=== PATIENT | female | born 1960 | race Caucasian/White ===

== ENCOUNTER 2020-12-19 06:45 | Emergency (ER) | payer OTHER, SELFPAY ==
--- NOTE | ~2020-12-19 | XR_ITS ---
EXAMINATION: XR chest 1V portable DATE: 12/19/2020 07:29 INDICATION: Fever TECHNIQUE: frontal view of the chest was obtained. COMPARISON: Chest radiograph dated 02/21/2018 FINDINGS: Mild opacities at the right lung base projecting over the diaphragm which could represent atelectasis and/or pneumonia. No pleural effusion or pneumothorax. The cardiomediastinal silhouette is normal. M ild thoracolumbar dextrocurvature with mild spondylosis. Old lateral left seventh rib fracture. IMPRESSION: 1. Mild right basilar opacities which could represent atelectasis and/or pneumonia. Reviewed, dictated and finalized at location A. IMPRESSION: 1. Mild right basilar opacities which could represent atelectasis and/or pneumo los.
[2020-12-19 06:53] VITALS: BP 106/74; PULSE 107; RESP 20; TEMP 38.1; O2SAT 93
--- NOTE | 2020-12-19 07:24 | ED.URI ---
HPI - URI/Sore Throat General Chief Complaint: Upper Respiratory Infection Stated Complaint: coughing, fatigued, no appetite since saturday Time Seen by Provider: 12/19/20 07:08 History of Present Illness HPI Narrative: Cough for the past few days. Associated with pleritic chest pain, fatigue, and poor appetie. No fever, SOB, vomiting, diarrhea. No sick contacts. She is a daily smoker. She has not had her COVID-19 vaccine. Related Data Allergies Allergy/AdvReac Type Severity Reaction Status Date / Time Penicillins Allergy Unknown Unknown Verified 02/21/18 10:31 Review of Systems Review of Systems: All systems reviewed & are unremarkable except as noted in HPI and below Constitutional: Constitutional: Reports fatigue and Denies fever(s) ENT: Denies sore throat Cardiovascular: Cardiovascular: Reports as per HPI Respiratory: Respiratory: Reports cough and Denies dyspnea Gastrointestinal: Gastrointestinal: Denies diarrhea, Denies nausea and Denies vomiting Genitourinary: Genitourinary: Reports no additional female genitourinary complaints Neurologic: Denies dizziness and Denies weakness [facility] Social History Social History (Updated 12/19/20 @ 20:37 by Abner Franco MD) Smoking status: Current every day smoker Exam Const: General: no acute distress and alert Orientation/consciousness: patient oriented x3 HENMT: Head: normal to inspection Neck: Neck: normal visual inspection Resp: Effort & Inspection: normal respiratory effort Auscultation: crackles bilateral at the base Cardio: Rate: tachycardic Rhythm: regular rhythm GI: GI Palp: Yes Soft to palpation and No Tenderness to palpation present (GI) Skin: General skin exam: normal color Neuro: General: patient oriented x3 and moves all extremities Speech: normal speech Gait exam (Neuro): Normal gait present Extrem: General: no edema Course Vital Signs Vital signs: Vital Signs Temperature 38.1 C H 12/19/20 06:53 Pulse Rate 107 H 12/19/20 06:53 Respiratory Rate 20 12/19/20 06:53 Blood Pressure 106/74 12/19/20 06:53 Pulse Oximetry 93 12/19/20 06:53 Temperature 38.1 C H 12/19/20 06:53 Pulse Rate 113 H 12/19/20 08:05 Respiratory Rate 16 12/19/20 08:05 Blood Pressure 116/70 12/19/20 08:05 Pulse Oximetry 94 12/19/20 08:05 MDM - URI/Sore Throat MDM Narrative Medical decision making narrative: Subtle infiltrate. Could be COVID or bacterial pneumonia. She had improvement with nebulizer treatment and has been maintaining her O2 saturation. She is a good candidate for outpatient treatment she agrees with the plan Medical Records Attestation: I reviewed the patient's medical records. Lab Data Attestation: I reviewed the patient's lab results. Result diagrams: 12/19/20 07:32 12/19/20 07:32 Labs: Lab Results 12/19/20 12/19/20 12/19/20 Range/Units 07:32 07:32 07:32 WBC 5.4 (4.5-10.0) K/mm3 RBC 4.32 (4.2-5.4) M/mm3 Hgb 13.9 (12.0-15.0) g/dL Hct 41.9 (37.0-47.0) % MCV 97.0 (80-100) fl MCH 32.2 (26-34) pg MCHC 33.2 (32-36) g/dl RDW 13.2 (11.5-14.5) % Plt Count 127 L (150-375) k/mm3 MPV 10.3 (7.4-10.4) fl Immature Gran % (Auto) 0.4 (0-0.5) % Neut % (Auto) 66.6 (45.5-73.1) % Lymph % (Auto) 24.4 (18.3-44.2) % [place] % (Auto) 7.6 (2.6-8.5) % Eos % (Auto) 0.6 (0-4.4) % Baso % (Auto) 0.4 (0.2-1.2) % Lymph # (Auto) 1.32 (0.9-3.2) K/mm3 [place] # (Auto) 0.4 (0.1-0.6) K/mm3 Eos # (Auto) 0.0 (0-0.3) K/mm3 Baso # (Auto) 0.0 (0.0-0.1) K/mm3 Abs Immat Gran (auto) 0.02 (0.00-0.031) K/mm3 Absolute Neuts (auto) 3.6 (1.3-6.7) K/mm3 Absolute Nucleated RBC 0.0 (0.0-0.012) K/mm3 Nucleated RBC % 0.0 (0.0-0.2) % % Immature Plt Fraction 4.0 (0.9-11.2) % Sodium 136 L (137-145) mmol/L Potassium 4.1 (3.4-5.0) mmol/L Chloride 104 (98-107) mmol/L Carbon Dioxide 26 (22-3
[2020-12-19] MEDS: SODIUM CHLORIDE 0.9% IV 500 ML 999 ML IV CONT (07:32)
[2020-12-19] MEDS: ALBUTEROL SULFATE NEB 2.5 MG/0.5 ML INH 5 MG INHALATION (07:36)
[2020-12-19 07:37] VITALS: PULSE 87; RESP 18
[2020-12-19] MEDS: IPRATROPIUM BR 0.02% INH SOLN 0.5 MG/2.5 ML VIAL INHALATION (07:37)
[2020-12-19 07:42] VITALS: PULSE 92; RESP 16
[2020-12-19 07:45] LABS: Basophils Percent Auto 0.4 % (0.2-1.2); Eosinophils Percent Auto 0.6 % (0-4.4); Hematocrit 41.9 % (37.0-47.0); Hemoglobin 13.9 g/dL (12.0-15.0); Immature Granulocyte Absolute 0.02 K/mm3 (0.00-0.031); Immature Granulocyte Percent A 0.4 % (0-0.5); Lymphocytes Absolute Auto 1.32 K/mm3 (0.9-3.2); Lymphocytes Percent Auto 24.4 % (18.3-44.2); Mean Corpuscular HGB Conc 33.2 g/dl (32-36); Mean Corpuscular Hemoglobin 32.2 pg (26-34); Mean Platelet Volume 10.3 fl (7.4-10.4); Monocytes Absolute Auto 0.4 K/mm3 (0.1-0.6); Monocytes Percent Auto 7.6 % (2.6-8.5); Neutrophils Absolute Auto 3.6 K/mm3 (1.3-6.7); Neutrophils Percent Auto 66.6 % (45.5-73.1); Platelet Count Result 127 k/mm3 (150-375); Red Blood Count 4.32 M/mm3 (4.2-5.4); Red Cell Distribution Width 13.2 % (11.5-14.5); White Blood Count 5.4 K/mm3 (4.5-10.0)
[2020-12-19 07:57] LABS: Anion Gap 6 mmol/L (8-16); Blood Urea Nitrogen 11 mg/dL (7-17); Calcium 9.2 mg/dL (8.4-10.2); Carbon Dioxide 26 mmol/L (22-30); Chloride 104 mmol/L (98-107); Estimated CRCL calculation 61 ml/min; Estimated Glomerular Filt Rate > 60; Glucose 115 mg/dL (65-110); Potassium 4.1 mmol/L (3.4-5.0); Sodium 136 mmol/L (137-145)
[2020-12-19 08:05] VITALS: BP 116/70; PULSE 113; RESP 16; O2SAT 94
[2020-12-19] MEDS: levoFLOXacin 500 MG TABLET PO (08:20)
[2020-12-19] MEDS: predniSONE 20 MG TABLET 40 MG PO (08:20)
[2020-12-19 20:35] LABS: SARS-CoV-2 RNA PCR Positive
== END 2020-12-19 08:20 | disposition home or self-care (01) ==
PROVIDERS: Emergency Provider Emergency Medicine
DX: U07.1 COVID-19 (principal); J12.82 Pneumonia due to coronavirus disease 2019; F17.200 Nicotine dependence, unspecified, uncomplicated
CPT/HCPCS: 36415; 71045; 80048; 85025; 85055; 94640; 96360; 99283; A9270; C9803; J7040; J7512; U0003; U0005

== ENCOUNTER 2020-12-23 21:33 | Inpatient (IN) | payer OTHER, SELFPAY ==
[2020-12-23] VITALS (12 sets, daily range): BP systolic 118–137; BP diastolic 67–75; PULSE 112–131; RESP 17–26; TEMP 39.1; O2SAT 91–94
--- NOTE | ~2020-12-23 | XR_ITS ---
EXAMINATION: XR chest 2V EXAM DATE: 12/23/2020 22:00 INDICATION: SOB, COVID +, cough, nausea since Saturday . TECHNIQUE: Frontal and lateral projections of the chest obtained and reviewed. Comparison is made to prior examination from 12/19/2020. FINDINGS: There is some new right-sided predominant ill-defined airspace disease probably acute infe ctious process. No pneumothorax or pleural effusion. Hyperinflation. There are no osseous abnormaliti es identified. IMPRESSION: 1. Small to moderate amount of bilateral ill-defined pneumonia. Reviewed, dictated and finalized at location G.
--- NOTE | ~2020-12-23 | CT_ITS ---
EXAMINATION: CTA chest PE protocol DATE: 12/24/2020 02:27 INDICATION: Chest pain, shortness of breath. Covid-positive. TECHNIQUE: Computed tomography angiography (CTA) of the chest was performed with 100 mL Omnipaque-350 intravenous contrast timed to evaluate the pulmonary arteries. Coronal maximum intensity projection 3D-reconstructions were created by the technologist. Automated exposure control and iterative reconst ruction technique were employed. Exam dose: 147.48 mGy-cm total exam DLP. COMPARISON: 12/23/2020 PA and lateral chest FINDINGS: There is diagnostic contrast enhancement of the pulmonary arteries and no evidence of pulmo nary embolism. Normal heart size. No thoracic aortic aneurysm or dissection. Normal heart size. No pericardial or pleural effusion. There are patchy scattered bilateral groundglass pulmonary infiltrates consistent with Covid pneumoni a. Incidental finding of cholelithiasis. The adrenal glands appear normal. Small sliding hiatal hernia. IMPRESSION: No evidence of pulmonary embolism Bilateral patchy groundglass infiltrates consistent with history of Covid pneumonia Reviewed, dictated and finalized at Location A. Reviewed, dictated and finalized at location A. IMPRESSION: No evidence of pulmonary embolism Bilateral patchy groundglass infiltrates consistent with history of Covid pneum onia
--- NOTE | 2020-12-23 21:43 | ECG_ITS ---
Measurements Intervals [place] Rate: 129 P: 34 AK: 96 QRS: 61 QRSD: 83 T: 59 QT: 263 QTc: 385 Interpretive Statements SINUS TACHYCARDIA WITH SHORT AK INTERVAL VENTRICULAR PREMATURE COMPLEX BASELINE ARTIFACT- AVL ABNORMAL ECG Electronically Signed On 12-24-2020 7:00:32 CDT by Dave Ritter D.O.
--- NOTE | 2020-12-23 21:55 | PC.NURSE ---
Patient taken to xray.
[2020-12-23 22:00] LABS: Basophils Percent Auto 0.2 % (0.2-1.2); Hemoglobin 14.4 g/dL (12.0-15.0); Immature Granulocyte Absolute 0.06 K/mm3 (0.00-0.031); Immature Granulocyte Percent A 1.3 % (0-0.5); Lymphocytes Absolute Auto 1.04 K/mm3 (0.9-3.2); Lymphocytes Percent Auto 21.7 % (18.3-44.2); Mean Corpuscular HGB Conc 34.3 g/dl (32-36); Mean Corpuscular Hemoglobin 31.9 pg (26-34); Mean Corpuscular Volume 93.1 fl (80-100); Mean Platelet Volume 9.8 fl (7.4-10.4); Monocytes Absolute Auto 0.4 K/mm3 (0.1-0.6); Monocytes Percent Auto 7.7 % (2.6-8.5); Neutrophils Absolute Auto 3.3 K/mm3 (1.3-6.7); Neutrophils Percent Auto 69.1 % (45.5-73.1); Platelet Count Result 173 k/mm3 (150-375); Red Blood Count 4.51 M/mm3 (4.2-5.4); Red Cell Distribution Width 12.9 % (11.5-14.5); White Blood Count 4.8 K/mm3 (4.5-10.0)
[2020-12-23 22:11] LABS: Alanine Aminotransferase 307 U/L (4-35); Albumin Level 4.1 g/dL (3.5-5.1); Alkaline Phosphatase 142 U/L (38-126); Anion Gap 9 mmol/L (8-16); Aspartate Amino Transferase 162 U/L (14-36); Bilirubin,Total 0.5 mg/dL (0.2-1.3); Blood Urea Nitrogen 17 mg/dL (7-17); Calcium 9.7 mg/dL (8.4-10.2); Carbon Dioxide 24 mmol/L (22-30); Chloride 99 mmol/L (98-107); Estimated CRCL calculation 54 ml/min; Estimated Glomerular Filt Rate > 60; Glucose 116 mg/dL (65-110); Sodium 132 mmol/L (137-145)
--- NOTE | 2020-12-23 23:46 | ED.SOB ---
HPI - SOB/Dyspnea General Chief Complaint: Shortness of Breath/Dyspnea Stated Complaint: COVID + Time Seen by Provider: 12/23/20 23:03 Source: patient and RN notes reviewed Mode of arrival: ambulatory Limitations: no limitations History of Present Illness HPI Narrative: This is a 60 year old female who presents for evaluation of weakness, cough and shortness of breath. Patient developed cough, fever, shortness of breath on Saturday. She was evaluated on Saturday in ED and she was diagnosed with pneumonia. She discharged with antibiotics and steroids. She has returned tonight for evaluation of weakness, lightheadedness, shortness of breath and continued fever. She reports nausea and vomiting but she denies diarrhea. She was found to have fever in ED. She has been using albuterol inhaler without relief. She states she was diagnosed with covid on Saturday. At bedside oxygen saturation at rest is 90-93% on room air. Related Data Home Medications Medication Instructions Recorded Confirmed No Home Medications 12/24/20 12/24/20 Allergies Allergy/AdvReac Type Severity Reaction Status Date / Time Penicillins Allergy Unknown Unknown Verified 12/23/20 21:41 Review of Systems Review of Systems: All systems reviewed & are unremarkable except as noted in HPI and below PMFSH Past Medical History Medical History (Updated 12/24/20 @ 07:13 by Myrna Shaffer MD) Patient denies medical problems Surgical History Surgical History (Updated 12/23/20 @ 23:53 by Myrna Shaffer MD) No pertinent past surgical history Social History Social History (Updated 12/19/20 @ 20:37 by Abner Franco MD) Smoking packs per day: 1 Smoking cigarettes per day: 20.0 Years smoked: 35 Smoking pack-years: 35.00 Smoking status: Current every day smoker Tobacco type: cigarettes Alcohol intake: former Substance use: never Spiritual care concerns: No Exam Const: General: alert and ill appearing Orientation/consciousness: patient oriented x3 Eyes: EOM: EOMs intact bilaterally Resp: Effort & Inspection: normal respiratory effort, not labored and not tachypneic Auscultation: crackles and diminished lung sounds Cardio: Rate: tachycardic Rhythm: regular rhythm Heart sounds: no murmurs GI: GI Palp: Yes Soft to palpation, No Tenderness to palpation present (GI) and No Guarding due to palpation present (GI) Auscultation: normal bowel sounds Skin: General skin exam: normal color Rashes: no rashes Neuro: General: patient oriented x3, moves all extremities and CN's II-XI intact bilaterally Psych: Mental Status: mental status grossly normal Affect: normal affect Course Reevaluation(s) Reevaluation #1: I discussed with patient the plan to admit to hospital for IV hydration. She has decreasing sodium, oxygen saturation and tachycardia. She is septic due to covid pneumonia Date: 12/24/20 Time: 01:00 Consultations Consultation #1: I discussed case with DR. wesley. She accepts patient to hospitalist service for covid. She agrees with dexamethasone and remdesivir. she also request for patient to get d dimer, LDH and ferritin before admission. Date: 12/24/20 Time: 00:33 Vital Signs Vital signs: Vital Signs Temperature 102.3 F H 12/23/20 21:37 Pulse Rate 131 H 12/23/20 21:37 Respiratory Rate 22 H 12/23/20 21:37 Blood Pressure 137/67 12/23/20 21:37 Pulse Oximetry 92 12/23/20 21:37 Temperature 101.4 F H 12/24/20 04:45 Pulse Rate 90 12/24/20 04:45 Respiratory Rate 20 12/24/20 04:45 Blood Pressure 103/63 12/24/20 04:45 Pulse Oximetry 90 12/24/20 04:45 MDM - SOB/Dyspnea Medical Records Attestation: I reviewed the patient's medical records. Lab Data Attestation: I reviewed the patient's lab results. Result diagrams: 12/23/20 21:53 12/23/20 21:53 Labs: Lab Results 12/23/20 12/23/20 12/23/20 Range/Units 21:53 21:53 21:53 WBC 4.8 (4.5-
[2020-12-23] MEDS: ONDANSETRON INJ 4 MG/2 ML VIAL IV PUSH (23:59)
[2020-12-24] VITALS (40 sets, daily range): BP systolic 91–127; BP diastolic 49–76; PULSE 67–126; RESP 15–27; TEMP 36.2–38.6; O2SAT 89–98; BMI 18.5
[2020-12-24] MEDS: SODIUM CHLORIDE 0.9% IV 1,000 ML 999 ML IV CONT
[2020-12-24 00:02] LABS: Alveolar/Arterial O2 Gradient 58.2 mmHg; Base Excess ABG 3.2 mEq/l (+/-2.0); Carboxyhemoglobin 0.7 % THb (0-2.0); Fractional Inspired Oxygen 21 %; HCO3 ABG 25.5 mEq/l (22.0-26.0); Methemoglobin ABG 0.5 %THb (0-1.5); Oxygen Content ABG 19.4 %vol (16.0-22.0); Oxygen Saturation ABG 90.6 % (95.0-100.0); PCO2 ABG 32.6 mmHg (35.0-45.0); PO2 ABG 52.5 mmHg (80.0-100.0); Reduced Hemoglobin 8.8 %THb (0-5.0); Total Hemoglobin 15.4 g/dL (12.0-18.0)
[2020-12-24 00:04] LABS: pH ABG 7.512 (7.350-7.450)
[2020-12-24 00:05] LABS: Device ROOM AIR; Modified Allen's Test Pass; Site Drawn LEFT RADIAL
[2020-12-24] MEDS: ALBUTEROL SULFATE (*SP) AEROSOL 1 PUFF 4 PUFF INHALATION ×4 (00:09→22:22)
[2020-12-24 01:02] LABS: Add Urine Microscopic? YES; Appearance Urine Clear (Clear); Bacteria Urine Trace /hpf; Bilirubin Urine Negative (Negative); Blood Urine Negative (Negative); Color Urine Yellow (Yellow); Glucose Urine UA Negative (Negative); Ketones Urine Negative (Negative); Leukocyte Esterase Ur Negative LEU/UL (Negative); Mucus Urine Rare /lpf; Nitrate Urine Negative (Negative); Protein Urine 2+ mg/dL (Negative); RBC Urine 0-2 /hpf (0-2); Specific Grav Ur 1.018 (1.001-1.035); Squamous Epithelial Cell Urine Rare /hpf (Few); Urobilinogen Urine Negative mg/dL (<2.0); WBC Urine 0-3 /hpf
[2020-12-24 01:22] LABS: INR 0.8; Prothrombin Time 11.5 Seconds (11.1-14.7)
[2020-12-24 01:27] LABS: D Dimer 1.49 ug/mL (<0.48)
[2020-12-24 01:34] LABS: Lactate Dehydrogenase 1239 U/L (313-618)
[2020-12-24] MEDS: REMDESIVIR 200 MG/NS 250 ML 200 MG/250 ML BAG 250 MG IVPB (02:46)
[2020-12-24] MEDS: SODIUM CHLORIDE 0.9% IV 1,000 ML 125 ML IV CONT ×3 (03:57→17:18)
[2020-12-24] MEDS: ALBUTEROL SULFATE (*SP) INHALER 1 PUFF (03:59)
--- NOTE | 2020-12-24 04:56 | ADMGEN ---
This patient, Shannan Diop, was admitted to [facility] Room 330-01. Patient/family oriented to hospital policies and general routines including ID bracelet, bed and alarms, visiting hours, pain management, procedures, bathroom and other care routines, personal items, smoking policy, room service/diet, and visiting hours. Information on how to activate the Rapid Response Team has been discussed. Patient/Family are encouraged to report perceived risks to care and to ask questions if they do not understand what they are told or what they should do.
--- NOTE | 2020-12-24 06:13 | PM.IMHP ---
H&P: HPI History of Present Illness Date/Time: 12/24/20 06:13 Chief Complaint: shortness of breath, COVID positive Narrative: 60-year-old female with past medical history of chronic tobacco abuse and recent COVID diagnosis who presented to the ER due to worsening shortness of breath.The patient reports that she became ill 8 days ago. The patient was initially evaluated in the ER on 12/19/2020 complaining of pleuritic chest pain, Nonproductive cough, lightheadedness and poor appetite. She was sent home with an albuterol inhaler, prednisone and empiric antibiotic therapy with Levaquin. she took a couple of doses of prednisone but quit taking M cuss she thought that caused a headache. She did not complete her antibiotic therapy and quit using the and haler as she felt that did not improve her symptoms. She has continued to have fevers as high as 103? over the last several days she has developed shortness of breath. She has also developed nausea But denies vomiting or diarrhea. The patient's oxygen saturations were ranging between 90 and 93% in the ER. Her ABG demonstrated hypoxemia. her D-dimer was elevated in the ER and she had a CTA of the chest that ruled out pulmonary embolism and demonstrated pattern consistent with COVID pneumonia. She denies a known history of COPD but has not seen a doctor since her youngest child was born 22 years ago. She does have frequent episodes of bronchitis depending on the time of year. She has smoked 1 pack of cigarettes per day since she was a teenager. She reports that she quit smoking 3 days ago. she usually drinks a 6 pack of beer a week on the weekends. She quit drinking alcohol 2 weeks ago. She has a thin body habitus but reports that her weight has been stable with no recent changes. Review of Systems Review of Systems: Narrative: 12 systems were reviewed with pertinent positives and negatives per HPI. Except as documented in the HPI, all other systems were reviewed and are negative. [facility] Past Medical History Medical History (Updated 12/24/20 @ 07:44 by Noemí Parham DO) Continuous tobacco abuse Surgical History Surgical History (Updated 12/24/20 @ 07:44 by Noemí Parham DO) History of 2 sections History of appendectomy History of tonsillectomy History of total hysterectomy with bilateral salpingo-oophorectomy (BSO) Family History Family History (Updated 12/24/20 @ 07:45 by Noemí Parham DO) Mother , age greater than 80 CHF (congestive heart failure) Father , at age greater than 80 CHF (congestive heart failure) Social History Social History (Updated 12/24/20 @ 07:47 by Noemí Parham DO) Social History: she lives at home with her common-law of over 20 years. She has 4 children with her and the child being 22 years of age. She reports that her children are healthy. She works for [employer]. She has smoked tobacco since her early teens. She reports that she quit smoking 3 days ago. She used to drink a 6 pack of beer each weekend but quit drinking 2 weeks ago. Primary care physician: None code status: Full code Smoking packs per day: 1 Smoking cigarettes per day: 20.0 Years smoked: 35 Smoking pack-years: 35.00 Smoking status: Current every day smoker Tobacco type: cigarettes Alcohol intake: former Substance use: never Spiritual care concerns: No Meds Home Medications and Allergies Home Medications Medication Instructions Recorded Confirmed Type No Home Medications 12/24/20 12/24/20 History Allergies Allergy/AdvReac Type Severity Reaction Status Date / Time Penicillins Allergy Unknown Unknown Verified 12/23/20 21:41 Vital Signs Vital Signs - 24 hr 12/23/20 21:37 12/23/20 22:53 12/23/20 23:00 Temperature 102.3 F H Pulse Rate 131 H 114 H 116 H Respiratory Rate 22 H 21 H 23 H Blood Pressure 137/67 125/75 Pulse Ox
[2020-12-24 08:00] LABS: INR 0.9
[2020-12-24 08:28] LABS: Alanine Aminotransferase 227 U/L (4-35); Estimated CRCL calculation 62 ml/min; Estimated Glomerular Filt Rate > 60
[2020-12-24 08:30] LABS: CRP 3.5 mg/dL (<1.0)
[2020-12-24] MEDS: ENOXAPARIN 40 MG/0.4 ML SYRINGE SUB-Q (08:36)
[2020-12-24] MEDS: DEXAMETHASONE 2 MG TABLET 6 MG PO (08:37)
[2020-12-24 09:25] LABS: Sodium 133 mmol/L (137-145)
--- NOTE | 2020-12-24 15:31 | PM.IMPN ---
Progress Note: A&P Assessment and Plan (1) Acute respiratory failure with hypoxemia: Code(s): J96.01 - Acute respiratory failure with hypoxia Status: Acute Assessment and Plan: Secondary to COVID-19 pneumonia. Treatment for COVID-19 as detailed below Chest CTA negative for pulmonary embolism with bilateral patchy ground-glass infiltrates consistent with COVID pneumonia Maintaining adequate oxygenation on room air. Supplemental oxygen as needed with goal saturation 90% or above. (2) Pneumonia due to COVID-19 virus: Code(s): U07.1 - COVID-19; J12.82 - Pneumonia due to coronavirus disease 2019 Status: Acute Assessment and Plan: Symptom onset approximately 8 days prior to presentation with positive test on 12/19/20. Continue dexamethasone and Remdesivir, started on 12/24. Monitor ALT with Remdesivir Supportive care to include bronchodilators, expectorants, antipyretics, incentive spirometry Trend acute phase reactants (3) Severe sepsis: Code(s): A41.9 - Sepsis, unspecified organism; R65.20 - Severe sepsis without septic shock Status: Acute Assessment and Plan: She met sepsis criteria on presentation with fever, tachycardia, tachypnea, and hypoxemia. Source of infection felt to be viral respiratory illness fever and tachypnea improved continue with treatment for COVID-19 described above (4) Acute dehydration: Code(s): E86.0 - Dehydration Status: Acute Assessment and Plan: Clinically volume depleted upon presentation secondary to poor PO intake and fever Will continue with gentle IV fluids overnight given still decreased PO intake; 50 ml/hr Reassess volume status in the AM (5) Tobacco abuse: Code(s): Z72.0 - Tobacco use Status: Acute Assessment and Plan: Reports she quit smoking within 72 hours prior to presentation. smoking cessation has been discussed. She states she does not intend to start smoking again. Subjective Date/time seen: 12/24/20 15:31 Interval history: Date of service: 12/24/2020 Shannan Diop is a 60 year old female with a history of tobacco abuse who is seen in follow-up for COVID-19 pneumonia. She is feeling a little bit better today. She endorses dry cough. Shortness of breath is improved and she is able to ambulate to the restroom without significant [place]. denies wheezing. No chest pain or palpitations. No fever or chills. She is not eating or drinking much. She denies anosmia or dysgeusia. She has regular bowel movements and denies diarrhea. No nausea, vomiting, or abdominal pain. Slight dizziness this morning when getting up but this has improved throughout the day. denies lower extremity edema. She has no additional concerns this time Review of Systems Review of Systems: All systems reviewed & are unremarkable except as noted in HPI and below Exam Narrative: Exam Narrative: Ms. Diop is a thin, frail 60-year-old female who is lying supine in bed. she appears comfortable and is in NARD. Neuro: awake, alert and oriented x4, speech clear, no focal neuro deficits noted HEENMT: normocephalic, atraumatic, EOMI, sclerae anicteric, moist oral mucosa Neck: supple, no lymphadenopathy Respiratory: diminished breath sounds bilaterally without crackles, rhonchi, or wheezes, dry barking cough, nonlabored breathing Cardio: regular rate, regular rhythm with S1-S2 Abdomen: nondistended, normoactive bowel sounds, soft, nontender to palpation Extremities: no edema, erythema, or tenderness to palpation Skin: no rashes or lesions, warm and dry Psych: appropriate mood and affect, judgment and insight intact Objective Data Vital Signs Vital Signs: Vital Signs - 24 hr 12/23/20 21:37 12/23/20 22:53 12/23/20 23:00 Temperature 102.3 F H Pulse Rate 131 H 114 H 116 H Respiratory Rate 22 H 21 H 23 H Blood Pressure 137/67 125/75 Pulse Oximetry 92 93 93
[2020-12-24] MEDS: guaiFENesin 12 HR 600 MG TABCR PO (22:00)
[2020-12-24] MEDS: REMDESIVIR 100 MG/NS 250 ML 100 MG/250 ML BAG 250 MG IVPB (22:00)
[2020-12-25] VITALS (8 sets, daily range): BP systolic 91–108; BP diastolic 56–65; PULSE 67–91; RESP 18–20; TEMP 36.4–37.1; O2SAT 90–93
[2020-12-25 07:04] LABS: Basophils Percent Auto 0.2 % (0.2-1.2); Eosinophils Percent Auto 0.2 % (0-4.4); Hemoglobin 13.2 g/dL (12.0-15.0); Immature Granulocyte Absolute 0.05 K/mm3 (0.00-0.031); Lymphocytes Absolute Auto 1.25 K/mm3 (0.9-3.2); Lymphocytes Percent Auto 24.2 % (18.3-44.2); Mean Corpuscular HGB Conc 34.7 g/dl (32-36); Mean Corpuscular Hemoglobin 32.4 pg (26-34); Mean Corpuscular Volume 93.1 fl (80-100); Mean Platelet Volume 9.7 fl (7.4-10.4); Monocytes Absolute Auto 0.2 K/mm3 (0.1-0.6); Monocytes Percent Auto 3.1 % (2.6-8.5); Neutrophils Absolute Auto 3.7 K/mm3 (1.3-6.7); Neutrophils Percent Auto 71.3 % (45.5-73.1); Platelet Count Result 170 k/mm3 (150-375); Red Blood Count 4.08 M/mm3 (4.2-5.4); Red Cell Distribution Width 13.2 % (11.5-14.5); White Blood Count 5.2 K/mm3 (4.5-10.0)
[2020-12-25 07:16] LABS: Alanine Aminotransferase 224 U/L (4-35); Alkaline Phosphatase 95 U/L (38-126); Anion Gap 6 mmol/L (8-16); Aspartate Amino Transferase 178 U/L (14-36); Bilirubin,Total 0.5 mg/dL (0.2-1.3); Blood Urea Nitrogen 15 mg/dL (7-17); CRP 5.2 mg/dL (<1.0); Calcium 8.2 mg/dL (8.4-10.2); Carbon Dioxide 23 mmol/L (22-30); Chloride 107 mmol/L (98-107); Estimated CRCL calculation 62 ml/min; Estimated Glomerular Filt Rate > 60; Glucose 90 mg/dL (65-110); Lactate Dehydrogenase 1598 U/L (313-618); Potassium 3.8 mmol/L (3.4-5.0); Sodium 136 mmol/L (137-145)
[2020-12-25 07:17] LABS: Prothrombin Time 12.9 Seconds (11.1-14.7)
[2020-12-25] MEDS: ALBUTEROL SULFATE (*SP) AEROSOL 1 PUFF 4 PUFF INHALATION ×3 (08:43→21:26)
[2020-12-25] MEDS: ENOXAPARIN 40 MG/0.4 ML SYRINGE SUB-Q (09:45)
[2020-12-25] MEDS: guaiFENesin 12 HR 600 MG TABCR PO ×2 (09:45→21:58)
[2020-12-25] MEDS: DEXAMETHASONE 2 MG TABLET 6 MG PO (09:46)
--- NOTE | 2020-12-25 13:08 | PM.IMPN ---
Progress Note: A&P Assessment and Plan (1) Acute respiratory failure with hypoxemia: Code(s): J96.01 - Acute respiratory failure with hypoxia Status: Acute Assessment and Plan: Secondary to COVID-19 pneumonia. Treatment for COVID-19 as detailed below Chest CTA negative for pulmonary embolism with bilateral patchy ground-glass infiltrates consistent with COVID pneumonia Maintaining adequate O2 sats on 2 L. Supplemental oxygen as needed with goal saturation 90% or above. (2) Pneumonia due to COVID-19 virus: Code(s): U07.1 - COVID-19; J12.82 - Pneumonia due to coronavirus disease 2019 Status: Acute Assessment and Plan: Symptom onset approximately 8 days prior to presentation with positive test on 12/19/20. Continue dexamethasone started on 12/24. Continue Remdesivir. ALT is elevated, but <10x upper limit of normal, therefore Remdesivir can be continued with close monitoring of ALT Supportive care to include bronchodilators, expectorants, antipyretics, incentive spirometry Trend acute phase reactants (3) Severe sepsis: Code(s): A41.9 - Sepsis, unspecified organism; R65.20 - Severe sepsis without septic shock Status: Acute Assessment and Plan: She met sepsis criteria on presentation with fever, tachycardia, tachypnea, and hypoxemia. Source of infection felt to be viral respiratory illness fever and tachypnea resolved continue with treatment for COVID-19 described above (4) Acute dehydration: Code(s): E86.0 - Dehydration Status: Acute Assessment and Plan: Clinically volume depleted upon presentation secondary to poor PO intake and fever IV fluids not decreased as ordered and now with crackles. IV fluids discontinued and will give 20 mg PO Lasix. Reassess volume status in the AM (5) Tobacco abuse: Code(s): Z72.0 - Tobacco use Status: Acute Assessment and Plan: Reports she quit smoking within 72 hours prior to presentation. smoking cessation has been discussed. She states she does not intend to start smoking again. Subjective Date/time seen: 12/25/20 13:08 Interval history: Date of service: 12/25/2020 Shannan Diop is a 60 year old female with a history of tobacco abuse who is seen in follow-up for COVID-19 pneumonia. she is coughing more today And states that she has been coughing for most of the day. Cough is nonproductive. She has some bilateral rib pain when she coughs. She denies pleuritic chest pain. She is able to get up and walk to the bathroom, though this does make her short of breath. No nausea, vomiting, fever, chills, dizziness, lightheadedness, diarrhea, or urinary symptoms. She is eating and drinking well. She has no additional concerns today. Review of Systems Review of Systems: All systems reviewed & are unremarkable except as noted in HPI and below Exam Narrative: Exam Narrative: Ms. Diop is a thin, frail 60-year-old female who is lying supine in bed. she appears comfortable and is in NARD. Neuro: awake, alert and oriented x4, speech clear, no focal neuro deficits noted HEENMT: normocephalic, atraumatic, EOMI, sclerae anicteric, moist oral mucosa Neck: supple, no lymphadenopathy Respiratory: diminished breath sounds bilaterally with crackles in right lung base. Persistent cough on exam. Able to speak in full sentences, but does pause to cough. Cardio: regular rate, regular rhythm with S1-S2 Abdomen: nondistended, normoactive bowel sounds, soft, nontender to palpation Extremities: no edema, erythema, or tenderness to palpation Skin: no rashes or lesions, warm and dry Psych: appropriate mood and affect, judgment and insight intact Objective Data Vital Signs Vital Signs: Vital Signs - 24 hr 12/24/20 16:00 12/24/20 16:48 12/24/20 20:00 Temperature 97.2 F L 98.4 F Pulse Rate 85 78 Respiratory Rate 16 18 Blood Pressure 110/63 101/53 L
[2020-12-25 13:49] LABS: Prothrombin Time 13.1 Seconds (11.1-14.7)
[2020-12-25 13:50] LABS: Alanine Aminotransferase 202 U/L (4-35); Estimated CRCL calculation 62 ml/min; Estimated Glomerular Filt Rate > 60
[2020-12-25] MEDS: FUROSEMIDE 20 MG TABLET PO (14:47)
--- NOTE | 2020-12-25 17:48 | PCRCNOTE ---
Window of time for administration has passed. See next scheduled administration.
[2020-12-25] MEDS: REMDESIVIR 100 MG/NS 250 ML 100 MG/250 ML BAG 250 MG IVPB (21:58)
[2020-12-26] VITALS (10 sets, daily range): BP systolic 96–134; BP diastolic 62–83; PULSE 60–81; RESP 16–18; TEMP 36.4–37; O2SAT 92–97
[2020-12-26 06:51] LABS: Hematocrit 39.6 % (37.0-47.0); Hemoglobin 13.9 g/dL (12.0-15.0); Mean Corpuscular HGB Conc 35.1 g/dl (32-36); Mean Corpuscular Hemoglobin 33.7 pg (26-34); Mean Corpuscular Volume 96.1 fl (80-100); Platelet Count Result 192 k/mm3 (150-375); Red Blood Count 4.12 M/mm3 (4.2-5.4); Red Cell Distribution Width 13.3 % (11.5-14.5); White Blood Count 4.4 K/mm3 (4.5-10.0)
[2020-12-26 07:13] LABS: Alanine Aminotransferase 212 U/L (4-35); Albumin Level 3.2 g/dL (3.5-5.1); Alkaline Phosphatase 92 U/L (38-126); Anion Gap 4 mmol/L (8-16); Aspartate Amino Transferase 152 U/L (14-36); Bilirubin,Total 0.6 mg/dL (0.2-1.3); Blood Urea Nitrogen 17 mg/dL (7-17); CRP 4.5 mg/dL (<1.0); Calcium 8.5 mg/dL (8.4-10.2); Carbon Dioxide 25 mmol/L (22-30); Chloride 107 mmol/L (98-107); Estimated CRCL calculation 73 ml/min; Estimated Glomerular Filt Rate > 60; Glucose 112 mg/dL (65-110); Potassium 4.2 mmol/L (3.4-5.0); Sodium 136 mmol/L (137-145)
[2020-12-26 08:49] LABS: Prothrombin Time 12.7 Seconds (11.1-14.7)
[2020-12-26] MEDS: ALBUTEROL SULFATE (*SP) AEROSOL 1 PUFF 4 PUFF INHALATION ×4 (08:51→20:26)
[2020-12-26] MEDS: ENOXAPARIN 40 MG/0.4 ML SYRINGE SUB-Q (09:40)
[2020-12-26] MEDS: DEXAMETHASONE 2 MG TABLET 6 MG PO (09:41)
[2020-12-26] MEDS: guaiFENesin 12 HR 600 MG TABCR PO ×2 (09:41→20:33)
--- NOTE | 2020-12-26 10:41 | PM.IMPN ---
Progress Note: A&P Assessment and Plan (1) Acute respiratory failure with hypoxemia: Code(s): J96.01 - Acute respiratory failure with hypoxia Status: Acute Assessment and Plan: Secondary to COVID-19 pneumonia. Treatment for COVID-19 as detailed below Chest CTA negative for pulmonary embolism with bilateral patchy ground-glass infiltrates consistent with COVID pneumonia Maintaining adequate O2 sats on 2 L. Supplemental oxygen as needed with goal saturation 90% or above. (2) Pneumonia due to COVID-19 virus: Code(s): U07.1 - COVID-19; J12.82 - Pneumonia due to coronavirus disease 2019 Status: Acute Assessment and Plan: Symptom onset approximately 8 days prior to presentation with positive test on 12/19/20. Continue dexamethasone started on 12/24. Continue Remdesivir. ALT is elevated (212), but <10x upper limit of normal, therefore Remdesivir can be continued with close monitoring of ALT Supportive care to include bronchodilators, expectorants, antipyretics, incentive spirometry, Cornet Trend acute phase reactants (3) Severe sepsis: Code(s): A41.9 - Sepsis, unspecified organism; R65.20 - Severe sepsis without septic shock Status: Acute Assessment and Plan: She met sepsis criteria on presentation with fever, tachycardia, tachypnea, and hypoxemia. Source of infection felt to be viral respiratory illness fever, tachycardia, and tachypnea resolved continue with treatment for COVID-19 described above (4) Acute dehydration: Code(s): E86.0 - Dehydration Status: Acute Assessment and Plan: Clinically volume depleted upon presentation secondary to poor PO intake and fever She was rehydrated with IV fluids and then developed evidence of hypervolemia with crackles on lung exam. Received 20 mg PO lasix 12/25. She is euvolemic currently. Tolerating PO intake Continue to monitor volume status (5) Tobacco abuse: Code(s): Z72.0 - Tobacco use Status: Acute Assessment and Plan: Reports she quit smoking within 72 hours prior to presentation. Smoking cessation has been discussed. She states she does not intend to start smoking again. (6) Hypotension: Code(s): I95.9 - Hypotension, unspecified Status: Acute Assessment and Plan: Last BP 96/63. BP consistently running in low-normal range. She is asymptomatic and sounds as though her BP typically runs low Repeat BP with manual Consider IV fluid bolus if remaining low but will hold off for now as she became volume overloaded yesterday. Subjective Date/time seen: 12/26/20 10:41 Interval history: Date of service: 12/26/2020 Shannan Diop is a 60 year old female with a history of tobacco abuse who is seen in follow-up for COVID-19 pneumonia. she is feeling better today. She is coughing less frequently. she feels that she has phlegm in her chest and is having difficulty getting it up. She is able to ambulate independently and denies [place]. denies chest pain, palpitations, wheezing, orthopnea. Appetite is good. No nausea or vomiting. No diarrhea. Denies dizziness or lightheadedness. She has some questions about finding a PCP you follow-up with an about plans to return to work which we discussed will depend on her overall improvement. Review of Systems Review of Systems: All systems reviewed & are unremarkable except as noted in HPI and below Exam Narrative: Exam Narrative: Ms. Diop is a thin, frail 60-year-old female who is lying supine in bed. she appears comfortable and is in NARD. Neuro: awake, alert and oriented x4, speech clear, no focal neuro deficits noted HEENMT: normocephalic, atraumatic, EOMI, sclerae anicteric, moist oral mucosa, poor dentition Neck: supple, no lymphadenopathy Respiratory: diminished breath sounds bilaterally without crackles, wheezes, or rhonchi. nonlabored breathing. Cardio: regular rate,
--- NOTE | 2020-12-26 10:47 | PCDIET ---
Dietitian Screen for BMI: 18.5. Spoke with patient today due to COVID-19. Patient states weight is around 100-110# ibs. She is eating well, 50-100% of a regular diet. She refused diet supplements. Agree with diet orders. No further nutritional interventions.
[2020-12-26] MEDS: REMDESIVIR 100 MG/NS 250 ML 100 MG/250 ML BAG 250 MG IVPB (23:45)
[2020-12-27] VITALS (8 sets, daily range): BP systolic 100–120; BP diastolic 50–80; PULSE 66–83; RESP 18–22; TEMP 36.6–37; O2SAT 90–98
[2020-12-27 06:35] LABS: Hematocrit 37.6 % (37.0-47.0); Hemoglobin 13.5 g/dL (12.0-15.0); Mean Corpuscular HGB Conc 35.9 g/dl (32-36); Mean Corpuscular Hemoglobin 34.1 pg (26-34); Mean Corpuscular Volume 94.9 fl (80-100); Platelet Count Result 249 k/mm3 (150-375); Red Blood Count 3.96 M/mm3 (4.2-5.4); Red Cell Distribution Width 13.3 % (11.5-14.5); White Blood Count 5.9 K/mm3 (4.5-10.0)
[2020-12-27 06:42] LABS: INR 0.9; Prothrombin Time 12.5 Seconds (11.1-14.7)
[2020-12-27 07:36] LABS: Alanine Aminotransferase 196 U/L (4-35); Albumin Level 3.2 g/dL (3.5-5.1); Alkaline Phosphatase 104 U/L (38-126); Aspartate Amino Transferase 123 U/L (14-36); Bilirubin,Total 0.6 mg/dL (0.2-1.3); Blood Urea Nitrogen 15 mg/dL (7-17); CRP 2.6 mg/dL (<1.0); Calcium 8.7 mg/dL (8.4-10.2); Carbon Dioxide 25 mmol/L (22-30); Estimated CRCL calculation 73 ml/min; Estimated Glomerular Filt Rate > 60; Glucose 108 mg/dL (65-110); Lactate Dehydrogenase 1285 U/L (313-618)
[2020-12-27 08:23] LABS: Anion Gap 7 mmol/L (8-16); Chloride 105 mmol/L (98-107); Potassium 3.9 mmol/L (3.4-5.0); Sodium 137 mmol/L (137-145)
[2020-12-27] MEDS: ALBUTEROL SULFATE (*SP) AEROSOL 1 PUFF 4 PUFF INHALATION (08:25)
[2020-12-27] MEDS: ENOXAPARIN 40 MG/0.4 ML SYRINGE SUB-Q (08:55)
[2020-12-27] MEDS: guaiFENesin 12 HR 600 MG TABCR PO ×2 (08:56→21:29)
[2020-12-27] MEDS: DEXAMETHASONE 2 MG TABLET 6 MG PO (08:56)
[2020-12-27 16:03] LABS: Vancomycin Trough < 5.0 ug/mL (10.0-20.0)
--- NOTE | 2020-12-27 18:11 | PM.IMPN ---
Progress Note: A&P Assessment and Plan (1) Acute respiratory failure with hypoxemia: Code(s): J96.01 - Acute respiratory failure with hypoxia Status: Acute Assessment and Plan: Secondary to COVID-19 pneumonia. Treatment for COVID-19 as detailed below Chest CTA negative for pulmonary embolism with bilateral patchy ground-glass infiltrates consistent with COVID pneumonia Maintaining adequate O2 sats on 1 L, nursing will attempt to wean to room air. Supplemental oxygen as needed with goal saturation 90% or above. (2) Pneumonia due to COVID-19 virus: Code(s): U07.1 - COVID-19; J12.82 - Pneumonia due to coronavirus disease 2019 Status: Acute Assessment and Plan: Symptom onset approximately 8 days prior to arrival with positive test on 12/19/20. Continue dexamethasone started on 12/24 (day 4). Continue Remdesivir (day 4). ALT is elevated but improving and <10x upper limit of normal, therefore Remdesivir can be continued with close monitoring of ALT. Supportive care to include bronchodilators, expectorants, antipyretics, incentive spirometry, Cornet Trend acute phase reactants (3) Severe sepsis: Code(s): A41.9 - Sepsis, unspecified organism; R65.20 - Severe sepsis without septic shock Status: Acute Assessment and Plan: She met sepsis criteria on presentation with fever, tachycardia, tachypnea, and hypoxemia. Source of infection felt to be viral respiratory illness with COVID-19 fever, tachycardia, and tachypnea resolved continue with treatment for COVID-19 described above (4) Acute dehydration: Code(s): E86.0 - Dehydration Status: Resolved Assessment and Plan: Clinically volume depleted upon presentation secondary to poor PO intake and fever She was rehydrated with IV fluids and then developed evidence of hypervolemia with crackles on lung exam. Received 20 mg PO lasix 12/25. She is euvolemic currently. Tolerating PO intake Continue to monitor volume status (5) Tobacco abuse: Code(s): Z72.0 - Tobacco use Status: Acute Assessment and Plan: Reports she quit smoking within 72 hours prior to presentation. Smoking cessation has been discussed. She states she does not intend to start smoking again. (6) Hypotension: Code(s): I95.9 - Hypotension, unspecified Status: Acute Assessment and Plan: Last BP 100/58. BP consistently running in low-normal range. She is asymptomatic and sounds as though her BP typically runs low. Monitor BP and adjust treatment as needed. Subjective Date/time seen: 12/27/20 1730 Interval history: Shannan Diop is a 60 year old female with a history of tobacco abuse who is seen in follow-up for COVID-19 pneumonia. She is feeling better today. She is coughing less frequently. Not able to cough up much phlegm. Denies feeling short of breath at rest or with walking to restroom. Has been eating and drinking well without nausea or vomiting today. Denies chest pain, dizziness or palpitations. Detailed discussion held regarding her isolation, return to work, and PCP follow up. Review of Systems Review of Systems: All systems reviewed & are unremarkable except as noted in HPI and below Exam Narrative: Exam Narrative: Ms. Diop is a thin, frail 60-year-old female who is lying supine in bed. She appears comfortable and is in NARD. Neuro: awake, alert and oriented x4, speech clear, no focal neuro deficits noted HEENMT: normocephalic, EOMI, sclerae anicteric, moist oral mucosa, poor dentition Neck: supple, no lymphadenopathy Respiratory: diminished breath sounds bilaterally without crackles, wheezes, or rhonchi. nonlabored breathing. Cardio: regular rate, regular rhythm with S1-S2 Abdomen: nondistended, normoactive bowel sounds, soft, nontender to palpation Extremities: no edema, erythema, or tenderness to palpation Skin: no rashes or lesions, war
[2020-12-27] MEDS: REMDESIVIR 100 MG/NS 250 ML 100 MG/250 ML BAG 250 MG IVPB (21:29)
[2020-12-28 03:51] VITALS: BP 110/67; PULSE 81; RESP 18; TEMP 36.7; O2SAT 90
[2020-12-28 06:42] LABS: Hematocrit 38.6 % (37.0-47.0); Hemoglobin 13.2 g/dL (12.0-15.0)
[2020-12-28 06:55] LABS: Alanine Aminotransferase 163 U/L (4-35); Albumin Level 3.1 g/dL (3.5-5.1); Alkaline Phosphatase 94 U/L (38-126); Anion Gap 10 mmol/L (8-16); Aspartate Amino Transferase 89 U/L (14-36); Bilirubin,Total 0.8 mg/dL (0.2-1.3); Blood Urea Nitrogen 15 mg/dL (7-17); Calcium 8.8 mg/dL (8.4-10.2); Carbon Dioxide 21 mmol/L (22-30); Chloride 106 mmol/L (98-107); Estimated CRCL calculation 73 ml/min; Estimated Glomerular Filt Rate > 60; Glucose 114 mg/dL (65-110); Potassium 4.1 mmol/L (3.4-5.0); Sodium 137 mmol/L (137-145)
[2020-12-28 08:00] VITALS: BP 92/52; PULSE 55; RESP 16; TEMP 37.7; O2SAT 91
[2020-12-28] MEDS: guaiFENesin 12 HR 600 MG TABCR PO (09:15)
[2020-12-28] MEDS: ENOXAPARIN 40 MG/0.4 ML SYRINGE SUB-Q (09:15)
[2020-12-28] MEDS: DEXAMETHASONE 2 MG TABLET 6 MG PO (09:15)
[2020-12-28 09:21] VITALS: O2SAT 90
[2020-12-28 10:15] VITALS: PULSE 81; O2SAT 95
[2020-12-28 10:20] VITALS: PULSE 101; O2SAT 94
--- NOTE | 2020-12-28 11:47 | PCRCNOTE ---
HOME O2 EVAL COMPLETE, NO REQUIREMENTS.
[2020-12-28 12:00] VITALS: BP 95/55; PULSE 77; RESP 16; TEMP 37.1; O2SAT 93
--- NOTE | 2020-12-28 13:30 | PM.DS ---
DS: Admitting Diagnosis Admitting Diagnosis COVID-19 pneumonia DS: Discharge Diagnosis Discharge Diagnosis (1) Acute respiratory failure with hypoxemia: Code(s): J96.01 - Acute respiratory failure with hypoxia Status: Acute Assessment and Plan: Secondary to COVID-19 pneumonia. Treatment for COVID-19 as detailed below Chest CTA negative for pulmonary embolism with bilateral patchy ground-glass infiltrates consistent with COVID pneumonia she required up to 2 L supplemental oxygen per nasal cannula. She was able to be weaned to room air. Home O2 eval performed with no need for home oxygen (2) Pneumonia due to COVID-19 virus: Code(s): U07.1 - COVID-19; J12.82 - Pneumonia due to coronavirus disease 2019 Status: Acute Assessment and Plan: Symptom onset approximately 8 days prior to arrival with positive test on 12/19/20. Treated with IV dexamethasone for 5 days. Will continue p.o. dexamethasone to complete 10 days received 5 days of IV Remdesivir Supportive care provided to include bronchodilators, expectorants, antipyretics, incentive spirometry, Cornet (3) Severe sepsis: Code(s): A41.9 - Sepsis, unspecified organism; R65.20 - Severe sepsis without septic shock Status: Acute Assessment and Plan: She met sepsis criteria on presentation with fever, tachycardia, tachypnea, and hypoxemia. Source of infection felt to be viral respiratory illness with COVID-19 fever, tachycardia, and tachypnea resolved treatment of COVID-19 described above Initial blood cultures 12/24 with 1/2 bottles positive, started on IV vancomycin for empiric gram positive coverage while awaiting identification. Growth of coag negative staphylococcus felt to be contaminant. Repeat blood cultures 12/27 negative to date. (4) Acute dehydration: Code(s): E86.0 - Dehydration Status: Resolved Assessment and Plan: Clinically volume depleted upon presentation secondary to poor PO intake and fever She was rehydrated with IV fluids. Appeared euvolemic on subsequent exams she was tolerating oral fluid intake (5) Tobacco abuse: Code(s): Z72.0 - Tobacco use Status: Acute Assessment and Plan: Reports she quit smoking within 72 hours prior to presentation. Smoking cessation was discussed. She states she does not intend to start smoking again. (6) Hypotension: Code(s): I95.9 - Hypotension, unspecified Status: Acute Assessment and Plan: BP consistently running in low-normal range. She is asymptomatic and sounds as though her BP typically runs low. blood pressures monitored closely and were stable; consistent with her usual BP DS: Summary Hospital Course Hospital Course: date of admission: 12/23/2020 date of discharge: 12/28/2020 Shannan Diop is a 60 year old female with a history of tobacco abuse who presented to the emergency department on 12/23/2020 with complaints of cough, shortness of breath, Weakness, and fever. she had tested positive for COVID-19 approximately 4 days prior to presentation. Upon presentation to the ED, she was febrile with temp 102.3?, HR 131, RR 22, and she was 90% on room air. CBC unremarkable, sodium 130 to with additional electrolytes stable, D-dimer slightly elevated, LDH elevated, and there was evidence of hypoxemia on ABG, CXR with small to moderate amount of ill-defined pneumonia, and CTA with multifocal ground-glass opacities without pulmonary embolism. She was admitted to the hospitalist service for further evaluation and management. Please see above for further details. She symptomatic improvement with treatment regimen and no longer required supplemental oxygen. Given her overall improvement, she was determined to no longer require inpatient care and was felt to be stable for discharge. We discussed worrisome signs and symptoms for which to return and she was educa
--- NOTE | 2020-12-29 10:17 | PC.NURSE ---
Patient called the nursing floor to say she only received 5 decadron tabs. I spoke with BOWEN Mcghee regarding this. 5 tabs is correct. Patient is to take one tab daily for the next 5 days. Called patient and left message regarding the above.
== END 2020-12-28 14:10 | disposition home or self-care (01) | DRG 871 ==
LOC: ANHED 23:32 → ANH3MEDSUR 12-24 04:59
PROVIDERS: Emergency Medicine; Physician Assistant; Admitting Provider Internal Medicine; Emergency Provider General Practice; Visit Provider Physician Assistant
DX: A41.89 Other specified sepsis (principal); U07.1 COVID-19; J12.82 Pneumonia due to coronavirus disease 2019; J96.01 Acute respiratory failure with hypoxia; B17.9 Acute viral hepatitis, unspecified; R65.20 Severe sepsis without septic shock; F17.210 Nicotine dependence, cigarettes, uncomplicated; E86.0 Dehydration; Z88.0 Allergy status to penicillin
CPT/HCPCS: 36415; 36600; 71046; 71275; 80053; 80202; 81001; 82375; 82565; 82728; 82805; 83050; 83615; 84295; 84460; 85014; 85018; 85025; 85027; 85380; 85610; 86140; 87040; 87077; 87186; 93005; 94618; 94640; 94667; 96361; 96365; 96367; 96372; 96375; 96376; 99285; A9270; G0378; J0131; J1650; J2405; J3370; J7030; J8540; Q9967

== ENCOUNTER → 2021-01-06 01:01 | Outpatient (CLI) | payer BC, SELFPAY ==
[2021-01-07 02:13] LABS: SARS-CoV-2 RNA PCR Positive
== END ==
PROVIDERS: PCP Family Medicine; Visit Provider Family Medicine
DX: R68.89 Other general symptoms and signs (principal); Z20.822 Contact with and (suspected) exposure to COVID-19
CPT/HCPCS: C9803; U0003; U0005

== ENCOUNTER 2021-02-23 11:22 | Outpatient (CLI) | payer BC, SELFPAY ==
[2021-02-23 12:14] LABS: Add Urine Microscopic? YES; Appearance Urine Clear (Clear); Bilirubin Urine Negative (Negative); Blood Urine Negative (Negative); Color Urine Yellow (Yellow); Glucose Urine UA Negative (Negative); Ketones Urine Negative (Negative); Leukocyte Esterase Ur Trace LEU/UL (Negative); Nitrate Urine Negative (Negative); Protein Urine Negative (Negative); RBC Urine 0-2 /hpf (0-2); Specific Grav Ur 1.015 (1.001-1.035); Squamous Epithelial Cell Urine Few /hpf (Few); Urobilinogen Urine Negative mg/dL (<2.0)
== END 2021-02-23 11:23 | disposition home or self-care (01) ==
LOC: ANHLAB 11:24
PROVIDERS: PCP Internal Medicine; Visit Provider Nurse Practitioner
DX: N39.0 Urinary tract infection, site not specified (principal)
CPT/HCPCS: 81001

== ENCOUNTER → 2021-04-04 03:03 | Outpatient (CLI) | payer BC, SELFPAY ==
[2021-04-04 18:29] LABS: SARS-CoV-2 RNA PCR Negative
== END ==
PROVIDERS: PCP Internal Medicine; Visit Provider Internal Medicine Gastroenterology
DX: Z01.812 Encounter for preprocedural laboratory examination (principal); Z20.822 Contact with and (suspected) exposure to COVID-19
CPT/HCPCS: C9803; U0003; U0005

== ENCOUNTER 2021-04-07 02:11 | Day surgery (SDC) | payer BC, SELFPAY ==
[2021-03-31 13:04] VITALS: BMI 18.3
--- NOTE | 2021-04-06 12:41 | P.HP_ITS ---
History of Present Illness History of Present Illness Consent: Risks, benefits, and alternatives have been discussed and questions answered. Patient agrees to proceed with procedure. Chief complaint: neoplasm screening Narrative: Shannan Diop is a 60 year old female Referred for colon cancer screening Review of Systems Review of Systems: All systems reviewed & are unremarkable except as noted in HPI and below PMFSH Past Medical History Medical History Continuous tobacco abuse Heart murmur Rheumatic fever Surgical History Surgical History History of 2 sections History of appendectomy History of tonsillectomy History of total hysterectomy with bilateral salpingo-oophorectomy (BSO) Family History Family History Mother , age greater than 80 CHF (congestive heart failure) Father , at age greater than 80 CHF (congestive heart failure) Social History Social History Social History: she lives at home with her common-law of over 20 years. She has 4 children with her and the child being 22 years of age. She reports that her children are healthy. She works for [employer]. She has smoked tobacco since her early teens. She reports that she quit smoking 3 days ago. She used to drink a 6 pack of beer each weekend but quit drinking 2 weeks ago. Primary care physician: None code status: Full code Smoking packs per day: 0.5 Smoking cigarettes per day: 10.0 Years smoked: 45 Smoking pack-years: 22.50 Smoking status: Current every day smoker Tobacco type: cigarettes Alcohol intake: former Substance use: never Living arrangements: with family Spiritual care concerns: No Meds Home Medications and Allergies Home Medications Medication Instructions Recorded Confirmed Type albuterol sulfate [Proventil HFA] 2 puff INHALATION QIDRT PRN #6.7 g 12/28/20 04/07/21 Rx acetaminophen 500 mg tablet 500 mg PO Q6H PRN 01/20/21 04/07/21 History guaifenesin [Mucus Relief ER] 600 mg PO HS 03/31/21 04/07/21 History Allergies Allergy/AdvReac Type Severity Reaction Status Date / Time Penicillins Allergy Unknown Unknown Verified 04/07/21 11:26 Exam Resp: Auscultation: clear to auscultation bilaterally Cardio: Rate: regular rate Rhythm: regular rhythm GI: GI Palp: Yes Soft to palpation and No Tenderness to palpation present (GI) Assessment and Plan Assessment and plan (1) Screening for colon cancer: Code(s): Z12.11 - Encounter for screening for malignant neoplasm of colon Status: Acute Assessment and Plan: Colonoscopy with possible biopsy or polypectomy or cautery or injection of substances.
[2021-04-07 11:27] VITALS: BP 117/67; PULSE 109; RESP 16; TEMP 36.3; O2SAT 98
[2021-04-07] MEDS: LACTATED RINGERS 1,000 ML 150 ML IV CONT (11:38)
--- NOTE | 2021-04-07 11:45 | WPDANESEPPF ---
Anes - Initial Pre Proc Eval Procedure: Operation Date: 04/07/21 12:30 Proposed Procedures p Screening Colonoscopy - Ariel Vazquez MD Date/Time: 04/07/21 11:45 Surgeon: Ariel Vazquez MD Pre Op Diagnosis: neoplasm screening Patient Data Age: 60 Gender: F Height: 1.57 m Weight: 48.3 kg Last Vital Signs Temp 36.3 C L 04/07/21 11:27 Pulse 109 H 04/07/21 11:27 Resp 16 04/07/21 11:27 BP 117/67 04/07/21 11:27 Pulse Ox 98 04/07/21 11:27 Allergies Allergy/AdvReac Type Severity Reaction Status Date / Time Penicillins Allergy Unknown Unknown Verified 04/07/21 11:26 Home Medications Medication Instructions Recorded Confirmed Type albuterol sulfate [Proventil HFA] 2 puff INHALATION QIDRT PRN #6.7 g 12/28/20 04/07/21 Rx acetaminophen 500 mg tablet 500 mg PO Q6H PRN 01/20/21 04/07/21 History guaifenesin [Mucus Relief ER] 600 mg PO HS 03/31/21 04/07/21 History Patient hx anesthesia problems: none Family hx anesthesia problems: none Results Review: All pre-operative results and documents have been reviewed as part of the pre-operative evaluation. [facility] Past Medical History Medical History Continuous tobacco abuse Heart murmur Rheumatic fever Surgical History Surgical History History of 2 sections History of appendectomy History of tonsillectomy History of total hysterectomy with bilateral salpingo-oophorectomy (BSO) Family History Family History Mother , age greater than 80 CHF (congestive heart failure) Father , at age greater than 80 CHF (congestive heart failure) Social History Social History Social History: she lives at home with her common-law of over 20 years. She has 4 children with her and the child being 22 years of age. She reports that her children are healthy. She works for [employer]. She has smoked tobacco since her early teens. She reports that she quit smoking 3 days ago. She used to drink a 6 pack of beer each weekend but quit drinking 2 weeks ago. Primary care physician: None code status: Full code Smoking packs per day: 0.5 Smoking cigarettes per day: 10.0 Years smoked: 45 Smoking pack-years: 22.50 Smoking status: Current every day smoker Tobacco type: cigarettes Alcohol intake: former Substance use: never Living arrangements: with family Spiritual care concerns: No Anes - Eval Final PreProcedure Day of Procedure 04/07/21 11:45 Patient weight: normal Heart: regular rate and rhythm Lungs: decreased breath sounds Airway: Mallampati scale class II Neurological: alert and oriented Last oral intake: >/= 8 hours ASA classification: III Emergent: no Anesthetic plan: proceed Anesthesia type and monitoring: general GIVS and standard monitoring Results Review: All pre-operative results and documents have been reviewed as part of the pre-operative evaluation. Informed Consent: The patient's anesthetic plan and its attendant risks and benefits were discussed with the patient/family/POA. Questions were solicited and answers provided to the satisfaction of the patient/family/POA.
[2021-04-07 13:04] VITALS: BP 101/62; PULSE 82; RESP 22; O2SAT 97
[2021-04-07 13:14] VITALS: BP 103/68; PULSE 84; RESP 24; O2SAT 97
[2021-04-07 13:24] VITALS: BP 128/79; PULSE 79; RESP 18; O2SAT 98
== END 2021-04-07 13:28 | disposition home or self-care (01) ==
PROVIDERS: PCP Internal Medicine; Visit Provider Internal Medicine Gastroenterology
PROC: 0DJD8ZZ Inspection of Lower Intestinal Tract, Via Natural or Artificial Opening Endoscopic (ICD-10-PCS; CPT 45378; principal; 2021-04-07 12:30)
DX: Z12.11 Encounter for screening for malignant neoplasm of colon (principal); K62.1 Rectal polyp; Z79.51 Long term (current) use of inhaled steroids; R01.1 Cardiac murmur, unspecified; Z86.19 Personal history of other infectious and parasitic diseases; Z87.891 Personal history of nicotine dependence
CPT/HCPCS: 45380; 88305; J2001; J2704; J7120

== ENCOUNTER 2021-04-21 14:08 | Outpatient (CLI) | payer BC, SELFPAY ==
--- NOTE | ~2021-04-21 | DEXA_ITS ---
Bone Density Report Name: Shannan Diop Age: 60 Sex: Female Ethnicity: White Date of : 1960 Indication: postmenopausal; hysterectomy; Referring Provider: SAJAN COVINGTON Study: Bone densitometry was performed. Exam Date: April 21, 2021 Accession number: [id number] Bone Density: Region BMD T-score Z-score Classification AP Spine (L1, L4) 0.882 -1.4 0.0 Osteopenia Femoral Neck (Left) 0.537 -2.8 -1.5 Osteoporosis Total Hip (Left) 0.651 -2.4 -1.5 Osteopenia Total Hip Bilateral Avg 0.646 -2.5 -1.6 Osteoporosis Femoral Neck (Right) 0.530 -2.9 -1.6 Osteoporosis Total Hip (Right) 0.639 -2.5 -1.6 Osteoporosis World Health Organization criteria for BMD impression classify patients as: Normal (T-score at or above -1.0), Osteopenia (T-score between -1.0 and -2.5), or Osteoporosis (T-score at or below -2.5). 10-year Fracture Risk: FRAX not reported because: Some T-score for Spine Total or Hip Total or Femoral Neck at or below -2.5 Clinical Information Provided by Patient: Smokes Has used the following medications: Vitamin D, Calcium Has the following medical conditions: Hysterectomy Patient maximum height was 62 Menopause Age: 31 Onset of menses at age 17 Number of children 4 Impression: The patient has osteoporosis, based on the Right Femoral Neck T-score. The patient has risk factors, including: smoking. Discussion: INCREASED RISK OF FRACTURE. BONE DENSITY IS UNDESIRABLY LOW AT ONE OR MORE SKELETAL SITES, CONSISTENT WITH POSTMENOPAUSAL OSTEOPOROSIS. This patient's lowest T-score meets the World Health Organization's (WHO) criteria for osteoporosis at one or more sites (T-score -2.5 or below). In untreated patients, the risk of osteoporotic fracture increases approximately two-fold for each 1.0 SD decrease in T-score. Low bone density is not the only risk factor for fracture; also consider factors such as patient's age, frailty or poor health, risk of falling, risk of injury, previous osteoporotic fracture, family history of osteoporosis, cigarette smoking, low body weight, etc. Not everyone with low bone mineral density has osteoporosis; osteomalacia and other metabolic bone disorders should also be considered. Patients who have osteoporosis should be evaluated for specific diseases and conditions (secondary causes) that may cause or contribute to bone loss. The [place] [employer] Endocrinologists (AACE) and National Osteoporosis Foundation (NOF) recommend pharmacologic intervention for all postmenopausal women whose T-score is in this range. The patient should follow a healthful lifestyle (good nutrition with adequate calcium and vitamin D, and appropriate weight-bearing exercise). Follow-Up: Consider a repeat BMD and Vertebral Fracture Assessment (VFA) exam in 2 years or sooner if medically necessa
--- NOTE | ~2021-04-21 | MM_ITS ---
EXAMINATION: MM screening sam BI w carlos HISTORY: Screening mammogram TECHNIQUE: Craniocaudal and mediolateral oblique 3-D tomosynthesis images were obtained and synthetic 2-D images were generated. CAD analysis was submitted and interpreted. COMPARISON: No prior mammogram is available for comparison at this institution. BREAST PARENCHYMAL COMPOSITION: There are scattered areas of fibroglandular density. FINDINGS: RIGHT BREAST: There is no evidence of suspicious mass, calcification, or architectural distortion to suggest malignancy. LEFT BREAST: There is a possible mass in the subareolar aspect of the breast. IMPRESSION: 1. Possible left breast mass. 2. Additional mammographic views and possible breast ultrasound are recommended. BI-RADS Category 0: Incomplete: Needs additional imaging evaluation. Reviewed, dictated and finalized at location A. R REPLACER IMPRESSION: 1. Possible left breast mass. 2. Additional mammographic views and possible breast ultrasound are recommended . BI-RADS Category 0: Incomplete: Needs additional imaging evaluation.
== END 2021-04-21 14:09 | disposition home or self-care (01) ==
LOC: ANHIMG 14:10
PROVIDERS: PCP Internal Medicine; Visit Provider Nurse Practitioner
DX: Z12.31 Encounter for screening mammogram for malignant neoplasm of breast (principal); Z78.0 Asymptomatic menopausal state; R92.8 Other abnormal and inconclusive findings on diagnostic imaging of breast; M85.88 Other specified disorders of bone density and structure, other site; M81.0 Age-related osteoporosis without current pathological fracture
CPT/HCPCS: 77063; 77067; 77080

== ENCOUNTER 2021-07-13 12:06 | Outpatient (CLI) | payer BC, SELFPAY ==
--- NOTE | ~2021-07-13 | MMUS_ITS ---
EXAMINATION: MM diagnostic sam LT w carlos, US breast LT limited HISTORY: Possible subareolar left breast mass TECHNIQUE: Additional 3-D tomosynthesis images of the left breast were performed and synthetic 2-D im ages were generated. CAD analysis was submitted and interpreted. High resolution limited left breast ultrasound was performed. COMPARISON: 04/21/2021 BREAST PARENCHYMAL COMPOSITION: There are scattered areas of fibroglandular density. FINDINGS: MAMMOGRAPHIC FINDINGS: No persistent mass is identified with spot compression of the left breast. There is no suspicious arc hitectural distortion or calcification. ULTRASOUND: There is no evidence of focal abnormal solid or cystic mass in the vicinity of the mammographic findi ng in question. IMPRESSION: 1. No mammographic or sonographic evidence of malignancy. 2. Recommend routine screening mammography in one year. BI-RADS Category 1: Negative Reviewed, dictated and finalized at location A. AVEMENT PROGRAM COORDINATOR IMPRESSION: 1. No mammographic or sonographic evidence of malignancy. 2. Recommend routine screening mammography in one year. BI-RADS Category 1: Negative
== END 2021-07-13 12:07 | disposition home or self-care (01) ==
LOC: ANHIMG 12:12
PROVIDERS: PCP Internal Medicine; Visit Provider Nurse Practitioner
DX: R92.8 Other abnormal and inconclusive findings on diagnostic imaging of breast (principal)
CPT/HCPCS: 76642; 77061; 77065; G0279